=== PATIENT | male | born 1955 | race Caucasian/White ===

== ENCOUNTER → 2016-07-13 | Outpatient (CLI) | payer OTHER ==
--- NOTE | ~2016-07-13 | CT55 ---
[facility] A Service of [facility] RADIOLOGY TEXT RESULTS PATIENT: VIRIDIANA MACK LOCATION: [facility] : 53 UNIT #: [id number] AGE: [address]: Jorge Polanco MD SEX: M ORDER DR: [id number] [address] [address] [id number] O MR#: [id number] Acc #: [id number] NAME: VIRIDIANA MACK : 1955 SEX: M STUDY DATE/TIME: 07/13/2016 8:34 UNIT: [facility] ROOM: STUDY DESCRIPTION: CT Chest W Con Attending Physician: Jorge Polanco M.D. Referring Physician: Jorge Polanco M.D. Ordering Physician: Jorge Polanco M.D. Primary Care Physician: Jonnathan Lowery M.D. MEDICAL IMAGING REPORT This report is preliminary unless electronic signature is present EXAM CT chest with contrast INDICATIONS Restaging renal cell carcinoma. Observation for metastatic disease. PROCEDURE Contrast-enhanced CT of the chest. 100 mL of Isovue-[address] exam was performed with one or more of the following radiation dose reduction techniques: automatic exposure control, adjustment of mA and/or kV according to patient size, and iterative reconstruction. COMPARISON 05/24/2016 FINDINGS Nodules in the right middle lobe and right lower lobe are unchanged. An index nodule in the posterior right lower lobe measures up to 1.5 cm. No new pulmonary nodule. No adenopathy. No aggressive appearing bone lesion. Refer to separately dictated abdomen and pelvis CT for findings below the diaphragm. Right lung nodules were PET negative on an 11/19/[address] They are stable in size from that study. IMPRESSION 1. No evidence for metastatic disease to the chest. 2. Right lung nodules are unchanged and were PET negative on a previous PET CT. [facility] A Service of [facility] RADIOLOGY TEXT RESULTS PATIENT: VIRIDIANA MACK LOCATION: [facility] : 53 UNIT #: [id number] AGE: [address]: Jorge Polanco MD SEX: M ORDER DR: 3. Refer to the separately dictated abdomen and pelvis CT for findings below the diaphragm. Dictated by... Charles George M.D. THIS IS AN ELECTRONICALLY VERIFIED REPORT Charles George M.D. at 07/14/2016 6:53 AM ANN/mercy TD: 07/13/2016 11:23 JOB #: [id number] MEDICAL IMAGING REPORT Page 1 of 1 COPY
--- NOTE | ~2016-07-13 | CT2 ---
[facility] A Service of [facility] RADIOLOGY TEXT RESULTS PATIENT: VIRIDIANA MACK LOCATION: [facility] : 53 UNIT #: [id number] AGE: [address]: Jorge Polanco MD SEX: M ORDER DR: [id number] [id number] [facility]. [place], [place] [address] [id number] O MR#: [id number] Acc #: [id number] NAME: VIRIDIANA MACK : 1955 SEX: M STUDY DATE/TIME: 07/13/2016 8:34 UNIT: [facility] ROOM: STUDY DESCRIPTION: CT Abd and Pelv W Cont Attending Physician: Jorge Polanco M.D. Referring Physician: Jorge Polanco M.D. Ordering Physician: Jorge Polnaco M.D. Primary Care Physician: Jonnathan Lowery M.D. MEDICAL IMAGING REPORT This report is preliminary unless electronic signature is present EXAM CT abdomen and pelvis with contrast INDICATION Restaging renal cell carcinoma. Observation for metastatic disease. PROCEDURE Contrast-enhanced CT of the abdomen and pelvis. This CT exam was performed with one or more of the following radiation dose reduction techniques: automatic exposure control, adjustment of mA and/or kV according to patient size, and iterative reconstruction. COMPARISON PET/CT from 11/19/2015 FINDINGS Refer to the separately dictated chest CT for thoracic findings. The liver enlarged measuring 2.0 cm in length. Hepatic steatosis. Spleen measures 16.7 cm. Right adrenal myelolipoma measures 9.2 cm. Previous left nephrectomy. No abnormal soft tissue in the nephrectomy bed. Left adrenal gland, pancreas, right kidney unremarkable. Bowel loops are nondilated. Uncomplicated left colonic diverticula. The appendix is normal. No pathologically enlarged abdominal lymph node. PELVIS WITH CONTRAST: No pelvic mass or fluid. No aggressive appearing bone lesion. IMPRESSION 1. Left nephrectomy. No evidence for recurrent disease or metastatic disease in the abdomen or pelvis. 2. Hepatosplenomegaly. Diffuse hepatic steatosis. [facility] A Service of [facility] RADIOLOGY TEXT RESULTS PATIENT: VIRIDIANA MACK LOCATION: [facility] : 53 UNIT #: [id number] AGE: [address]: Jorge Polanco MD SEX: M ORDER DR: 3. Large right adrenal myelolipoma. 4. Refer to separately dictated chest CT for thoracic findings. Dictated by... Charles George M.D. THIS IS AN ELECTRONICALLY VERIFIED REPORT Charles George M.D. at 07/14/2016 6:53 AM Jennifer TD: 07/13/2016 11:22 JOB #: [id number] MEDICAL IMAGING REPORT Page 1 of 1 COPY
[2016-07-13 08:25] LABS: POC - CREATININE 1.3 mg/dL (0.64-1.27)
== END | disposition home or self-care (01) ==
LOC: CCAT 07:23
PROVIDERS: Internal Medicine Hematology & Oncology
DX: C78.01 Secondary malignant neoplasm of right lung (principal); R16.2 Hepatomegaly with splenomegaly, not elsewhere classified; D17.79 Benign lipomatous neoplasm of other sites; R91.8 Other nonspecific abnormal finding of lung field; C64.2 Malignant neoplasm of left kidney, except renal pelvis; Z90.5 Acquired absence of kidney
CPT/HCPCS: 71260; 74177; 82565; Q9967

== ENCOUNTER → 2016-10-21 | Outpatient (CLI) | payer OTHER ==
--- NOTE | ~2016-10-21 | CT57 ---
[facility] A Service of [facility] RADIOLOGY TEXT RESULTS PATIENT: VIRIDIANA MACK [facility] 53 UNIT #: [id number] AGE: [address]: Jorge Polanco MD SEX: M ORDER DR: [id number] [facility] [address] [place]. [place], [place] [address] [id number] O MR#: [id number] Acc #: [id number] NAME: VIRIDIANA MACK : 1955 SEX: M STUDY DATE/TIME: 10/21/2016 10:45 UNIT: [facility] ROOM: STUDY DESCRIPTION: CT Chest Wo Cont Attending Physician: Jorge Polanco M.D. Referring Physician: Jorge Polanco M.D. Ordering Physician: Jorge Polanco M.D. Primary Care Physician: Jonnathan Lowery M.D. MEDICAL IMAGING REPORT This report is preliminary unless electronic signature is present EXAM CT chest without contrast INDICATIONS Follow up lung cancer. TECHNIQUE CT of the chest was performed without contrast. Coronal and sagittal reformatted images were obtained. This CT exam was performed with one or more of the following radiation dose reduction techniques: automatic exposure control, adjustment of mA and/or kV according to patient size, and iterative reconstruction. COMPARISON STUDIES 07/13/2016. FINDINGS Multiple pulmonary nodules are seen in the right lung. They are all stable. The index nodule in the right lower lobe measures about 1.6 cm which is stable. No new nodules. There is no suspicious lymphadenopathy. There is no pleural effusion. Limited imaging of the upper abdomen shows stable large right adrenal myelolipoma. Fatty infiltration of the liver. Left nephrectomy. Bone windows are unremarkable. IMPRESSION Stable right lung pulmonary nodules. Dictated by... Los Puri M.D. THIS IS AN ELECTRONICALLY VERIFIED REPORT [facility] A Service of [facility] RADIOLOGY TEXT RESULTS PATIENT: VIRIDIANA MACK [facility] 53 UNIT #: [id number] AGE: [address]: Jorge Polanco MD SEX: M ORDER DR: Los Puri M.D. at 10/24/2016 7:25 AM ARS/pcl TD: 10/21/2016 20:38 JOB #: [id number] MEDICAL IMAGING REPORT Page 1 of 1 COPY
== END | disposition home or self-care (01) ==
LOC: CCAT 10:18
DX: C78.01 Secondary malignant neoplasm of right lung (principal); C64.2 Malignant neoplasm of left kidney, except renal pelvis; E03.9 Hypothyroidism, unspecified; J01.90 Acute sinusitis, unspecified; R91.8 Other nonspecific abnormal finding of lung field
CPT/HCPCS: 71250